=== PATIENT | male | born 1950 | race Caucasian/White ===

== ENCOUNTER 2016-09-22 18:53 | Observation (INO) | payer OTHER ==
[~2016-09-22] VITALS: Ht 179.1 cm; Wt 98.7 kg
[2016-09-22] MEDS ORDERED: DILTIAZEM 50 MG/10 ML VIAL IV ONE ×2 (19:20→21:17)
[2016-09-22] MEDS ORDERED: ASPIRIN 81 MG CHEW TAB ONE (20:40)
[2016-09-22] MEDS ORDERED: DIGOXIN 0.5 MG/2 ML AMP IV STA (21:16)
[2016-09-22] MEDS ORDERED: METOPROLOL TART 25 MG TAB PO STA (21:16)
[2016-09-22] MEDS ORDERED: ED DILTIAZEM DRIP 125 ML IV ONE (21:17)
[2016-09-22] MEDS ORDERED: SALINE FLUSH 10 ML FLUSH PRN (21:20)
[2016-09-22] MEDS ORDERED: ACETAMINOPHEN 325 MG TAB PO PRN (21:20)
[2016-09-22] MEDS ORDERED: ONDANSETRON 4 MG VIAL IV PRN (21:20)
[2016-09-22] MEDS ORDERED: DOCUSATE SOD 100 MG CAP PO PRN (21:20)
[2016-09-22] MEDS ORDERED: LORAZEPAM 0.5 MG TAB PO PRN (21:20)
[2016-09-22] MEDS ORDERED: CARDIZEM 1 MG/ML DRIP 125 ML IV SCH (21:20)
[2016-09-22] MEDS ORDERED: DIGOXIN 0.5 MG/2 ML AMP ONE (22:12)
[2016-09-22] MEDS ORDERED: METOPROLOL TART 25 MG TAB ONE (22:12)
[2016-09-23] VITALS (27 sets, daily range): BP systolic 95–139; RESP 17–18; TEMP 97–98.1; Ht 179.1 cm; Wt 98.7 kg
[2016-09-23] MEDS ORDERED: DIGOXIN 0.5 MG/2 ML AMP IV ONE (02:00)
[2016-09-23] MEDS ORDERED: MISSING DOSE XX ONE ×6 (02:05→19:55)
[2016-09-23] MEDS: SODIUM CHLORIDE 0.9% FLUSH BAG 500 ML IV SCH (06:00)
[2016-09-23] MEDS ORDERED: ASPIRIN EC 81 MG TAB PO SCH (08:00)
[2016-09-23] MEDS: METOPROLOL TART 25 MG TAB PO SCH ×2 (09:53→20:44)
[2016-09-23] MEDS: SALINE FLUSH 10 ML FLUSH SCH ×2 (09:54→20:46)
[2016-09-23] MEDS: ASPIRIN EC 81 MG TAB PO SCH (13:05)
[2016-09-23] MEDS ORDERED: CHOLECALCIFEROL 1,000 UNITS TAB PO SCH (13:05)
[2016-09-23] MEDS: LISINOPRIL 10 MG TAB PO SCH (16:21)
[2016-09-23] MEDS: LORATADINE 10 MG TAB PO SCH ×2 (16:21→20:43)
[2016-09-23] MEDS: PANTOPRAZOLE 40 MG TAB PO SCH (17:38)
[2016-09-23] MEDS: APIXABAN 5 MG TAB PO SCH (20:43)
[2016-09-23] MEDS ORDERED: METOPROLOL XL 25 MG TAB PO SCH (21:00)
[2016-09-24 03:00] VITALS: BP_SYST 127; RESP 18; TEMP 98.2
[2016-09-24] MEDS: SODIUM CHLORIDE 0.9% FLUSH BAG 500 ML IV SCH (05:56)
[2016-09-24] MEDS: PANTOPRAZOLE 40 MG TAB PO SCH (05:56)
[2016-09-24] MEDS: SALINE FLUSH 10 ML FLUSH SCH (08:00)
[2016-09-24 10:12] VITALS: BP_SYST 128; RESP 18; TEMP 97.6
[2016-09-24 11:37] VITALS: BP_SYST 124; RESP 18; TEMP 97.9
[2016-09-24] MEDS ORDERED: MISSING DOSE XX ONE (11:45)
[2016-09-24] MEDS: LISINOPRIL 10 MG TAB PO SCH (12:20)
[2016-09-24] MEDS: LORATADINE 10 MG TAB PO SCH (12:21)
[2016-09-24] MEDS: APIXABAN 5 MG TAB PO SCH (12:21)
[2016-09-24] MEDS: ASPIRIN EC 81 MG TAB PO SCH (12:21)
[2016-09-24] MEDS: METOPROLOL TART 25 MG TAB PO SCH (12:21)
[2016-09-24 14:05] VITALS: BP_SYST 124; RESP 18; TEMP 97.9
== END 2016-09-24 12:37 | disposition home or self-care (01) ==
LOC: ENRESERV → ENRESERVTM → ENRESERVDT → ER 18:53 → EMR 21:16 → ENPENDDIS 21:16 → PCU 09-23 00:20
PROVIDERS: ADMIT Internal Medicine Cardiovascular Disease; ATTEND Internal Medicine Cardiovascular Disease
DX: I48.0 Paroxysmal atrial fibrillation (principal); I10 Essential (primary) hypertension; K21.9 Gastro-esophageal reflux disease without esophagitis; R55 Syncope and collapse; V47.5XXA Car driver injured in collision with fixed or stationary object in traffic accident, initial encounter; Z79.82 Long term (current) use of aspirin; Z79.899 Other long term (current) drug therapy
CPT/HCPCS: 36415; 70450; 71010; 78452; 80053; 80061; 82550; 82947; 83735; 83880; 84439; 84443; 84484; 85025; 85610; 85730; 93005; 93017; 93306; 96374; 96376